=== PATIENT | male | born 1970 | race Two or more races ===

== ENCOUNTER 2018-04-18 13:23 | Inpatient (IN) | payer OTHER ==
[2018-04-18 14:51] VITALS: BMI 22.9
--- NOTE | 2018-04-18 16:13 | HP ---
"COWS - Scale Resting Pulse: 0= [place] 80 or Below Sweatin=Flushed/Facial Moisture Restless Observation: 1= Difficult to Sit Still Pupil Size: 2= Moderately Dilated (Pupils = 6 mm) Bone or Joint Aches: 2= Severe Diffuse Aches (Legs, arms, shoulder, heah all hurts) Runny Nose/ Eye Tearin= Constantly Teary/Runny GI Upset > 30mins: 2= Nausea/Diarrhea Tremor Observation: 4= Gross Tremor/Twitching Yawning Observation: 1= 1-2x During Session Anxiety or Irritability: 1=Feels Anxious/Irritable Goose Flesh Skin: 0=Smooth Skin COWS Score: 19 CIWA Score - Admission Criteria [facility] Guidelines: Admission for Medically Managed Detox: Requires at least one of the followin. CIWA greater than 12 2. Seizures within the past 24 hours 3. Delirium tremens within the past 24 hours 4. Hallucinations within the past 24 hours 5. Acute intervention needed for co occurring medical disorder 6. Acute intervention needed for co occurring psychiatric disorder 7. Severe withdrawal that cannot be handled at a lower level of care (continued vomiting, continued diarrhea, abnormal vital signs) requiring intravenous medication and/or fluids 8. Admission ROS [facility] Chief Complaint: Here with heroin withdrawal. Allergies/Adverse Reactions: Allergies Allergy/AdvReac Type Severity Reaction Status Date / Time No Known Drug Allergies Allergy Verified 04/18/18 15:20 History of Present Illness: I have heroin addiction. Heroin use began at age 16. IVDU. Denies sharing needles or works. Nicotine use began at age 21. Hx two overdoses. States last overdose 2 weeks ago and received Narcan. Longest sobriety 2 months. Denies seizures. c/o aches in legs, arms, shoulder, head r/t withdrawal. Denies significant PMH. Search Terms: Finesse Tapia, 1970 Search Date: 04/18/2018 04:12:55 PM The Drug Utilization Report below displays all of the controlled substance prescriptions, if any, that your patient has filled in the last twelve months. The information displayed on this report is compiled from pharmacy submissions to the Department, and accurately reflects the information as submitted by the pharmacies. This report was requested by: Ana María Ellis | Reference #: [id number] There are no results for the search terms that you entered. Exam Limitations: No Limitations - Ebola screening Have you traveled outside of the country in the last 21 days: No Have you had contact with anyone from an Ebola affected area: No Have you been sick,other than usual withdrawal symptoms: No Do you have a fever: No - Review of Systems Constitutional: Chills, Diaphoresis EENT: reports: Blurred Vision, Nose Congestion Respiratory: reports: No Symptoms reported Cardiac: reports: No Symptoms Reported GI: reports: Diarrhea, Nausea : reports: No Symptoms Reported Musculoskeletal: reports: Back Pain (r/t withdrawal), Joint Pain (States r/t withdrawal), Muscle Pain (States r/t withdrawal) Integumentary: reports: No Symptoms Reported Neuro: reports: Headache, Tremors Endocrine: reports: No Symptoms Reported Hematology: reports: No Symptoms Reported Psychiatric: reports: Judgement Intact, Orientated x3, Agitated, Anxious Patient History - Patient Medical History Hx Asthma: No Hx Chronic Obstructive Pulmonary Disease (COPD): No Hx Cardiac Disorders: No Hx Hypertension: No Hx Seizures: No Hx Diabetes: No Hx Gastrointestinal Disorders: No Hx Genitourinary Disorders: No Hx Sexually Transmitted Disorders: No Hx Renal Disease (ESRD): No Hx Human Immunodeficiency Virus (HIV): No (2017) Hx Depression: No Hx Suicide Attempt: No Hx Schizophrenia: No - Patient Surgical History Past Surgical History: Yes Hx Neurologic Surgery: No Hx Cataract Extraction: No Hx Cardiac Surgery: No Hx Lung Surgery: No Hx Breast Surgery: No Hx Breast Biopsy: No Hx Abdominal Surgery: No Hx Appendectomy: Yes (in 1980) Hx Cholecystectomy: No Hx Genitourinary Surgery: No Hx Orthopedic Surgery: Yes (bilateral leg ORIF in 1998) Anesthesia Reaction: No - PPD History Previous Implant?: Yes Documented Results: Negative w/o proof Implanted On Prior [facility] Admission?: No PPD to be Administered?: Yes - Smoking Cessation Smoking history: Former smoker Have you smoked in the past 12 months: Yes Aproximately how many cigarettes per day: 2 Cigars Per Day: 0 Hx Chewing Tobacco Use: No Initiated information on smoking cessation: Yes 'Breaking Loose' booklet given: 04/18/18 - Substance & Tx. History Hx Alcohol Use: No Hx Substance Use: Yes Substance Use Type: Heroin Hx Substance Use Treatment: Yes (detox) - Substances Abused Heroin Route: Injection Frequency: Daily Amount used: 10 bags Age of first use: 16 Date of Last Use: 04/17/18 Admission Physical Exam [facility] - Vital Signs Vital Signs: Vital Signs - 24 hr 04/18/18 14:45 Temperature 99.2 F Pulse Rate 75 Respiratory 18 Rate Blood Pressure 101/53 L - Physical General Appearance: Yes: Moderate Distress, Tremorous, Sweating, Anxious HEENTM: Yes: EOMI, Hearing grossly Normal Respiratory: Yes: Chest Non-Tender, Lungs Clear, Normal Breath Sounds, No Respiratory Distress Neck: Yes: No masses,lesions,Nodules, Supple Breast: Yes: Breast Exam Deferred Cardiology: Yes: Regular Rhythm, Regular Rate, S1, S2 Abdominal: Yes: Non Tender, Soft, Increased Bowel Sounds Genitourinary: Yes: Within Normal Limits Back: Yes: Normal Inspection Musculoskeletal: Yes: full range of Motion, Gait Steady Extremities: Yes: Normal Capillary Refill, Normal Range of Motion, Non-Tender, Tremors Neurological: Yes: heel seat fitter machine II-XII NML intact, Fully Oriented, Alert, Motor Strength 5/5 Integumentary: Yes: Normal Color, Dry, Warm, Track Lorenzo (Old and new track lorenzo on arms. No increased warmth or erythema.) - Diagnostic (1) Opioid dependence with withdrawal Current Visit: Yes Status: Acute (2) Nicotine dependence, unspecified, in remission Current Visit: Yes Status: Chronic Qualifiers: Nicotine product type: cigarettes Qualified Code(s): F17.211 - Nicotine dependence, cigarettes, in remission Comment: Stopped smoking 1 week ago. Cleared for Admission [facility] - Detox or Rehab [facility] Level of Care: Medically Supervised Detox Regimen/Protocol: Methadone [facility] Breath Alcohol Content Breath Alcohol Content: 0 Urine Drug Screen - Results Drug Screen Negative: No Urine Drug Screen Results: OPI-Opiates, FEN-Fentanyl"
[2018-04-18] MEDS ORDERED: NICOTINE POLACRILEX 2 MG GUM BC PRN (17:02)
[2018-04-18] MEDS ORDERED: MENTHOL/PHENOL 1 EACH UD MM PRN (17:02)
[2018-04-18] MEDS ORDERED: MAGNESIUM HYDROX 2400MG/30ML ORAL SUSPENSION 30 ML CUP PO PRN (17:02)
[2018-04-18] MEDS ORDERED: MAGNESIUM CITRATE 300 ML BOTTLE PO PRN (17:02)
[2018-04-18] MEDS ORDERED: IBUPROFEN 400 MG TABLET (FP) PO PRN (17:02)
[2018-04-18] MEDS ORDERED: ACETAMINOPHEN 325 MG TABLET (FP) PO PRN (17:02)
[2018-04-18] MEDS ORDERED: MAG HYDROX/AL HYDROX/SIMETH 30 ML UNIT-DOSE CUP PO PRN (17:02)
[2018-04-18] MEDS ORDERED: LOPERAMIDE HCL 2 MG CAPSULE PO PRN (17:02)
[2018-04-18] MEDS ORDERED: METHADONE HCL 10 MG TABLET (FOR DETOX USE ONLY) PO ONE ×2 (17:15→23:00)
[2018-04-18] MEDS: diazePAM 5 MG TABLET PO PRN (19:11)
[2018-04-18] MEDS: THIAMINE HCL 100 MG TABLET (FP) PO SCH (22:01)
[2018-04-18] MEDS: MELATONIN 5 MG TABLETS PO PRN (22:01)
[2018-04-18 22:03] LABS: URINE APPEARANCE TURBID; URINE BILIRUBIN NEGATIVE (<2.0 mg/dL); URINE COLOR YELLOW; URINE GLUCOSE (UA) NEGATIVE (NEGATIVE); URINE KETONE NEGATIVE (NEGATIVE); URINE LEUK ESTERASE NEGATIVE (NEGATIVE); URINE NITRITE NEGATIVE (NEGATIVE); URINE PROTEIN 1+ (NEGATIVE)
[2018-04-18 22:07] LABS: EPI CELLS RARE /HPF (FEW); URINE MUCUS MANY
[2018-04-19] MEDS: diazePAM 5 MG TABLET PO PRN ×2 (08:43→12:56)
[2018-04-19] MEDS ORDERED: METHADONE HCL 10 MG TABLET (FOR DETOX USE ONLY) PO ONE (10:00)
[2018-04-19] MEDS: PRENATAL VITAMINS W/ FOLIC ACID TABLET (FP) PO SCH (10:07)
[2018-04-19 10:21] LABS: HEMATOCRIT 39.1 % (35.4-49); HEMOGLOBIN 13.8 GM/dL (11.7-16.9); MCH 31.6 pg (25.7-33.7); MCHC 35.2 g/dl (32.0-35.9); MEAN CELL VOLUME 89.7 fl (80-96); MEAN PLT VOLUME 9.3 fl (7.5-11.1); PLATELET COUNT 244 K/MM3 (134-434); RBC 4.36 M/mm3 (4.00-5.60); RDW 14.1 % (11.9-15.9); WHITE BLOOD COUNT 8.9 K/mm3 (4.0-10.0)
[2018-04-19 10:45] LABS: ALBUMIN 3.3 g/dl (3.4-5.0); ALK PHOS 86 U/L (45-117); ANION GAP 6 MMOL/L (8-16); BILIRUBIN,TOTAL 0.5 mg/dL (0.2-1); BLOOD UREA NITROGEN 13 mg/dL (7-18); CALCIUM 8.3 mg/dL (8.5-10.1); CHLORIDE 105 mmol/L (98-107); CO2 27 mmol/L (21-32); CREATININE 0.8 mg/dL (0.55-1.3); GLUCOSE,RANDOM 75 mg/dL (74-106); POTASSIUM 4.5 mmol/L (3.5-5.1); SGOT/AST 28 U/L (15-37); SGPT/ALT 33 U/L (13-61); SODIUM 138 mmol/L (136-145); TOT PROT 7.4 g/dl (6.4-8.2)
--- NOTE | 2018-04-19 11:29 | PN ---
BHS COWS - Scale Resting Pulse: 0= [place] 80 or Below Sweatin= Chills/Flushing Restless Observation: 0= Sits Still Pupil Size: 0= Normal to Room Light Bone or Joint Aches: 2= Severe Diffuse Aches Runny Nose/ Eye Tearin= Runny Nose/Eyes GI Upset > 30mins: 2= Nausea/Diarrhea Tremor Observation of Outstretched Hands: 2= Slight Tremor Visible Yawning Observation: 1= 1-2x During Session Anxiety or Irritability: 1=Feels Anxious/Irritable Goose Flesh Skin: 0=Smooth Skin COWS Score: 11 S Progress Note (SOAP) Subjective: PATIENT C/O ANXIETY, SLEEP DISTURBANCE, CHILLS, SHAKES, NAUSEA AND DIARRHEA. Objective: 04/19/18 11:27 Vital Signs Temperature 98.6 F 04/19/18 09:09 Pulse Rate 74 04/19/18 09:09 Respiratory Rate 18 04/19/18 09:09 Blood Pressure 104/73 04/19/18 09:09 O2 Sat by Pulse Oximetry (%) Laboratory Tests 04/18/18 04/19/18 04/19/18 18:58 07:30 07:30 WBC 8.9 RBC 4.36 Hgb 13.8 Hct 39.1 MCV 89.7 MCH 31.6 MCHC 35.2 RDW 14.1 Plt Count 244 MPV 9.3 Sodium 138 Potassium 4.5 Chloride 105 Carbon Dioxide 27 Anion Gap 6 L BUN 13 Creatinine 0.8 Creat Clearance w eGFR > 60 Random Glucose 75 Calcium 8.3 L Total Bilirubin 0.5 AST 28 ALT 33 Alkaline Phosphatase 86 Total Protein 7.4 Albumin 3.3 L Urine Color Yellow Urine Appearance Turbid Urine pH 5.0 Ur Specific [place] 1.029 Urine Protein 1+ H Urine Glucose (UA) Negative Urine Ketones Negative Urine Blood Negative Urine Nitrite Negative Urine Bilirubin Negative Urine Urobilinogen 2.0 Ur Leukocyte Esterase Negative Urine WBC (Auto) 3 Urine RBC (Auto) None Ur Epithelial Cells Rare Urine Mucus Many HIV 1&2 Antibody Screen HIV P24 Antigen 04/19/18 07:30 WBC RBC Hgb Hct MCV MCH MCHC RDW Plt Count MPV Sodium Potassium Chloride Carbon Dioxide Anion Gap BUN Creatinine Creat Clearance w eGFR Random Glucose Calcium Total Bilirubin AST ALT Alkaline Phosphatase Total Protein Albumin Urine Color Urine Appearance Urine pH Ur Specific [place] Urine Protein Urine Glucose (UA) Urine Ketones Urine Blood Urine Nitrite Urine Bilirubin Urine Urobilinogen Ur Leukocyte Esterase Urine WBC (Auto) Urine RBC (Auto) Ur Epithelial Cells Urine Mucus HIV 1&2 Antibody Screen Negative HIV P24 Antigen Negative PE: ALERT AND ORIENTED X 3 SKIN +GOOSEFLESH, CHILLS EXT FULL ROM AMB AD [place] ANXIOUS/IRRITABLE Assessment: 04/19/18 11:29 WITHDRAWAL SX Plan: CONTINUE DETOX ENCOURAGE ORAL FLUIDS CONTINUE TO MONITOR CLINICALLY
--- NOTE | 2018-04-19 12:06 | EKG ---
Test Reason : Blood Pressure : / mmHG Vent. Rate : 060 BPM Atrial Rate : 060 BPM P-R Int : 142 ms QRS Dur : 072 ms QT Int : 408 ms P-R-T Axes : 058 068 062 degrees QTc Int : 408 ms NORMAL SINUS RHYTHM NORMAL ECG NO PREVIOUS ECGS AVAILABLE Confirmed by VA SALEEM MD ([id number]) on 04/19/2018 12:05:51 PM Referred By: Confirmed By:VA SALEEM MD
[2018-04-19 12:16] LABS: RPR NONREACTIVE (NONREACTIVE)
[2018-04-19] MEDS: THIAMINE HCL 100 MG TABLET (FP) PO SCH (22:25)
[2018-04-19] MEDS: MELATONIN 5 MG TABLETS PO PRN (22:25)
[2018-04-20] MEDS: diazePAM 5 MG TABLET PO PRN ×2 (08:32→22:14)
[2018-04-20] MEDS ORDERED: cloNIDine HCL 0.1 MG TABLET PO PRN (08:59)
--- NOTE | 2018-04-20 09:40 | PN ---
[facility] COWS - Scale Resting Pulse: 0= [place] 80 or Below Sweatin= Chills/Flushing Restless Observation: 1= Difficult to Sit Still Pupil Size: 0= Normal to Room Light Bone or Joint Aches: 1= Mild Discomfort Runny Nose/ Eye Tearin= Nasal Congestion GI Upset > 30mins: 1= Stomach Cramp Tremor Observation of Outstretched Hands: 1= Tremor [place], Not Seen Yawning Observation: 0= None Anxiety or Irritability: 0= None Goose Flesh Skin: 0=Smooth Skin COWS Score: 6 BHS Progress Note (SOAP) Subjective: pt states he is not feeling good- feels like he is still in withdrawal-getting detox protocol but feels methadone dose is not enough O: Vital Signs - 24 hr 04/19/18 04/19/18 04/19/18 13:16 17:30 21:10 Temperature 98.1 F 97.8 F 97.1 F L Pulse Rate 82 53 L 61 Respiratory 18 16 18 Rate Blood Pressure 90/60 88/60 L 90/52 L 04/20/18 04/20/18 04/20/18 00:30 03:13 06:16 Temperature 97 F L Pulse Rate 59 L Respiratory 18 18 16 Rate Blood Pressure 96/63 04/20/18 09:08 Temperature 97.9 F Pulse Rate 68 Respiratory 18 Rate Blood Pressure 90/57 L Laboratory Tests 04/18/18 04/19/18 04/19/18 18:58 07:30 07:30 WBC 8.9 RBC 4.36 Hgb 13.8 Hct 39.1 MCV 89.7 MCH 31.6 MCHC 35.2 RDW 14.1 Plt Count 244 MPV 9.3 Sodium 138 Potassium 4.5 Chloride 105 Carbon Dioxide 27 Anion Gap 6 L BUN 13 Creatinine 0.8 Creat Clearance w eGFR > 60 Random Glucose 75 Calcium 8.3 L Total Bilirubin 0.5 AST 28 ALT 33 Alkaline Phosphatase 86 Total Protein 7.4 Albumin 3.3 L Urine Color Yellow Urine Appearance Turbid Urine pH 5.0 Ur Specific [place] 1.029 Urine Protein 1+ H Urine Glucose (UA) Negative Urine Ketones Negative Urine Blood Negative Urine Nitrite Negative Urine Bilirubin Negative Urine Urobilinogen 2.0 Ur Leukocyte Esterase Negative Urine WBC (Auto) 3 Urine RBC (Auto) None Ur Epithelial Cells Rare Urine Mucus Many RPR Titer HIV 1&2 Antibody Screen HIV P24 Antigen 04/19/18 07:30 WBC RBC Hgb Hct MCV MCH MCHC RDW Plt Count MPV Sodium Potassium Chloride Carbon Dioxide Anion Gap BUN Creatinine Creat Clearance w eGFR Random Glucose Calcium Total Bilirubin AST ALT Alkaline Phosphatase Total Protein Albumin Urine Color Urine Appearance Urine pH Ur Specific [place] Urine Protein Urine Glucose (UA) Urine Ketones Urine Blood Urine Nitrite Urine Bilirubin Urine Urobilinogen Ur Leukocyte Esterase Urine WBC (Auto) Urine RBC (Auto) Ur Epithelial Cells Urine Mucus RPR Titer Nonreactive HIV 1&2 Antibody Screen Negative HIV P24 Antigen Negative low calcium a/p Heroin detox protocol: on methadone, will add prn clonidine and prn vistaril to regimen calcium supplement
[2018-04-20] MEDS ORDERED: METHADONE HCL 5 MG TABLET (FOR DETOX USE ONLY) PO ONE (10:00)
[2018-04-20] MEDS: PRENATAL VITAMINS W/ FOLIC ACID TABLET (FP) PO SCH (10:20)
[2018-04-20] MEDS: CALCIUM CARBONATE 650 MG TABLET PO SCH ×2 (11:42→22:15)
[2018-04-20] MEDS ORDERED: diazePAM 5 MG TABLET PO ONE (14:15)
[2018-04-20] MEDS: THIAMINE HCL 100 MG TABLET (FP) PO SCH (22:15)
[2018-04-21] MEDS ORDERED: METHADONE HCL 5 MG TABLET (FOR DETOX USE ONLY) PO ONE (10:00)
[2018-04-21] MEDS: PRENATAL VITAMINS W/ FOLIC ACID TABLET (FP) PO SCH (10:05)
[2018-04-21] MEDS: diazePAM 5 MG TABLET PO PRN (10:05)
[2018-04-21] MEDS: CALCIUM CARBONATE 650 MG TABLET PO SCH ×2 (10:05→22:06)
--- NOTE | 2018-04-21 11:23 | PN ---
BHS Progress Note (SOAP) Subjective: alert,irritable,anxious,interrupted sleep,pain in the body Objective: 04/21/18 11:22 Vital Signs Temperature 96.6 F L 04/21/18 09:18 Pulse Rate 81 04/21/18 09:18 Respiratory Rate 16 04/21/18 09:18 Blood Pressure 91/56 L 04/21/18 09:18 O2 Sat by Pulse Oximetry (%) Laboratory Last Values WBC 8.9 K/mm3 (4.0-10.0) 04/19/18 07:30 RBC 4.36 M/mm3 (4.00-5.60) 04/19/18 07:30 Hgb 13.8 GM/dL (11.7-16.9) 04/19/18 07:30 Hct 39.1 % (35.4-49) 04/19/18 07:30 MCV 89.7 fl (80-96) 04/19/18 07:30 MCH 31.6 pg (25.7-33.7) 04/19/18 07:30 MCHC 35.2 g/dl (32.0-35.9) 04/19/18 07:30 RDW 14.1 % (11.9-15.9) 04/19/18 07:30 Plt Count 244 K/MM3 (134-434) 04/19/18 07:30 MPV 9.3 fl (7.5-11.1) 04/19/18 07:30 Sodium 138 mmol/L (136-145) 04/19/18 07:30 Potassium 4.5 mmol/L (3.5-5.1) 04/19/18 07:30 Chloride 105 mmol/L (98-107) 04/19/18 07:30 Carbon Dioxide 27 mmol/L (21-32) 04/19/18 07:30 Anion Gap 6 MMOL/L (8-16) L 04/19/18 07:30 BUN 13 mg/dL (7-18) 04/19/18 07:30 Creatinine 0.8 mg/dL (0.55-1.3) 04/19/18 07:30 Creat Clearance w eGFR > 60 (>60) 04/19/18 07:30 Random Glucose 75 mg/dL (74-106) 04/19/18 07:30 Calcium 8.3 mg/dL (8.5-10.1) L 04/19/18 07:30 Total Bilirubin 0.5 mg/dL (0.2-1) 04/19/18 07:30 AST 28 U/L (15-37) 04/19/18 07:30 ALT 33 U/L (13-61) 04/19/18 07:30 Alkaline Phosphatase 86 U/L (45-117) 04/19/18 07:30 Total Protein 7.4 g/dl (6.4-8.2) 04/19/18 07:30 Albumin 3.3 g/dl (3.4-5.0) L 04/19/18 07:30 Urine Color Yellow 04/18/18 18:58 Urine Appearance Turbid 04/18/18 18:58 Urine pH 5.0 (5.0-8.0) 04/18/18 18:58 Ur Specific [place] 1.029 (1.010-1.035) 04/18/18 18:58 Urine Protein 1+ (NEGATIVE) H 04/18/18 18:58 Urine Glucose (UA) Negative (NEGATIVE) 04/18/18 18:58 Urine Ketones Negative (NEGATIVE) 04/18/18 18:58 Urine Blood Negative (NEGATIVE) 04/18/18 18:58 Urine Nitrite Negative (NEGATIVE) 04/18/18 18:58 Urine Bilirubin Negative (<2.0 mg/dL) 18 18:58 Urine Urobilinogen 2.0 mg/dL (0.2-1.0) 04/18/18 18:58 Ur Leukocyte Esterase Negative (NEGATIVE) 04/18/18 18:58 Urine WBC (Auto) 3 /hpf (3-5) 18 18:58 Urine RBC (Auto) None /hpf (0-3) 18 18:58 Ur Epithelial Cells Rare /HPF (FEW) 04/18/18 18:58 Urine Mucus Many 18 18:58 RPR Titer Nonreactive (NONREACTIVE) 04/19/18 07:30 HIV 1&2 Antibody Screen Negative 04/19/18 07:30 HIV P24 Antigen Negative 04/19/18 07:30 Assessment: 04/21/18 11:22 withdrawal symptom Plan: continue detox
[2018-04-21] MEDS: THIAMINE HCL 100 MG TABLET (FP) PO SCH (22:05)
[2018-04-21] MEDS: hydrOXYzine PAMOATE 50 MG CAPSULE (FP) PO PRN (22:05)
[2018-04-22] MEDS ORDERED: METHADONE HCL 10 MG TABLET (FOR DETOX USE ONLY) PO ONE (10:00)
[2018-04-22] MEDS: PRENATAL VITAMINS W/ FOLIC ACID TABLET (FP) PO SCH (10:13)
[2018-04-22] MEDS: CALCIUM CARBONATE 650 MG TABLET PO SCH ×2 (10:13→22:16)
[2018-04-22] MEDS: hydrOXYzine PAMOATE 50 MG CAPSULE (FP) PO PRN (10:13)
--- NOTE | 2018-04-22 13:48 | PN ---
BHS Progress Note (SOAP) Subjective: Interrupted sleep, tremor, agitated Objective: 04/22/18 13:44 Last Vital Signs Temp Pulse Resp BP Pulse Ox 96.9 F L 65 18 91/52 L 04/22/18 13:36 04/22/18 13:36 04/22/18 13:36 04/22/18 13:36 Hypotension noted Laboratory Tests 04/18/18 04/19/18 04/19/18 18:58 07:30 07:30 WBC 8.9 RBC 4.36 Hgb 13.8 Hct 39.1 MCV 89.7 MCH 31.6 MCHC 35.2 RDW 14.1 Plt Count 244 MPV 9.3 Sodium 138 Potassium 4.5 Chloride 105 Carbon Dioxide 27 Anion Gap 6 L BUN 13 Creatinine 0.8 Creat Clearance w eGFR > 60 Random Glucose 75 Calcium 8.3 L Total Bilirubin 0.5 AST 28 ALT 33 Alkaline Phosphatase 86 Total Protein 7.4 Albumin 3.3 L Urine Color Yellow Urine Appearance Turbid Urine pH 5.0 Ur Specific [place] 1.029 Urine Protein 1+ H Urine Glucose (UA) Negative Urine Ketones Negative Urine Blood Negative Urine Nitrite Negative Urine Bilirubin Negative Urine Urobilinogen 2.0 Ur Leukocyte Esterase Negative Urine WBC (Auto) 3 Urine RBC (Auto) None Ur Epithelial Cells Rare Urine Mucus Many RPR Titer HIV 1&2 Antibody Screen HIV P24 Antigen 04/19/18 07:30 WBC RBC Hgb Hct MCV MCH MCHC RDW Plt Count MPV Sodium Potassium Chloride Carbon Dioxide Anion Gap BUN Creatinine Creat Clearance w eGFR Random Glucose Calcium Total Bilirubin AST ALT Alkaline Phosphatase Total Protein Albumin Urine Color Urine Appearance Urine pH Ur Specific [place] Urine Protein Urine Glucose (UA) Urine Ketones Urine Blood Urine Nitrite Urine Bilirubin Urine Urobilinogen Ur Leukocyte Esterase Urine WBC (Auto) Urine RBC (Auto) Ur Epithelial Cells Urine Mucus RPR Titer Nonreactive HIV 1&2 Antibody Screen Negative HIV P24 Antigen Negative Labs reviewed: UA shows proteinuria Assessment: 04/22/18 13:45 Withdrawal symptoms Hypotension and proteinuria noted Plan: Continue detox Hypotension: asymptomatic, encouraged to drink more water Proteinuria: encouraged PO water intake, repeat UA
[2018-04-22 21:12] LABS: URINE APPEARANCE CLEAR; URINE BILIRUBIN NEGATIVE (<2.0 mg/dL); URINE COLOR LTYELLOW; URINE GLUCOSE (UA) NEGATIVE (NEGATIVE); URINE KETONE NEGATIVE (NEGATIVE); URINE LEUK ESTERASE NEGATIVE (NEGATIVE); URINE NITRITE NEGATIVE (NEGATIVE); URINE PROTEIN NEGATIVE (NEGATIVE); URINE UROBILINOGEN NEGATIVE mg/dL (0.2-1.0)
[2018-04-22] MEDS: MELATONIN 5 MG TABLETS PO PRN (22:16)
[2018-04-22] MEDS: THIAMINE HCL 100 MG TABLET (FP) PO SCH (22:16)
[2018-04-23] MEDS ORDERED: METHADONE HCL 5 MG TABLET (FOR DETOX USE ONLY) PO ONE (06:00)
[2018-04-23 09:08] VITALS: BP 96/68; PULSE 56; TEMP 98.6
--- NOTE | 2018-04-23 09:27 | DS ---
[facility] Detox Discharge Summary Admission Date: 04/18/18 Discharge Date: 04/23/18 - History Present History: Opioid Dependence - Physical Exam Results Vital Signs: Vital Signs Temperature 98.6 F 04/23/18 09:07 Pulse Rate 56 L 04/23/18 09:07 Respiratory Rate 18 04/23/18 09:07 Blood Pressure 96/68 04/23/18 09:07 O2 Sat by Pulse Oximetry (%) - Treatment Hospital Course: Detox Protocol Followed, Detoxed Safely, Responded well, Discharged Condition Good, Rehab Referral Accepted - Medication Discharge Medications: Ambulatory Orders NK [No Known Home Medication] 04/18/18 - AMA Did Patient Leave Against Medical Advice: No (referred to inpatient rehab)
[2018-04-23] MEDS: PRENATAL VITAMINS W/ FOLIC ACID TABLET (FP) PO SCH (10:10)
[2018-04-23] MEDS: CALCIUM CARBONATE 650 MG TABLET PO SCH (10:10)
== END 2018-04-23 11:02 | disposition home or self-care (01) | DRG 773 ==
LOC: YASAS 13:23 → Y3N 16:25
PROC: HZ2ZZZZ Detoxification Services for Substance Abuse Treatment (ICD-10-PCS; principal; 2018-04-18)
DX: F11.23 Opioid dependence with withdrawal (principal); F17.211 Nicotine dependence, cigarettes, in remission; I95.9 Hypotension, unspecified; R80.9 Proteinuria, unspecified
CPT/HCPCS: 36415; 80053; 81003; 81015; 85027; 86593; 87389; 93005; 93010